=== PATIENT | male | born 1990 | race African-American/Black ===

== ENCOUNTER 2023-10-03 09:27 | Emergency (ER) | payer OTHER, SELFPAY ==
--- NOTE | 2023-10-03 09:38 | ED.ASTHMA ---
HPI - Asthma General Chief Complaint: Asthma Stated Complaint: asthmatic,difficulty breathing Time Seen by Provider: 10/03/23 09:58 Source: patient and RN notes reviewed Mode of arrival: ambulatory Limitations: no limitations History of Present Illness HPI Narrative: 33-year-old male presents with concern for trouble breathing he reports history of asthma. He is from [place] and reports he uses franol. He reports he has never used an albuterol inhaler. He reports he has had sinus congestion, drainage for about 3 weeks. Reports over the last several days he started coughing and having shortness of breath. He denies fever. MD complaint: shortness of breath Related Data Home Medications Medication Instructions Recorded Confirmed No Home Medications 10/03/23 10/03/23 Allergies Allergy/AdvReac Type Severity Reaction Status Date / Time No Known Allergies Allergy Verified 10/03/23 09:49 Review of Systems Review of Systems: CONSTITUTIONAL: Denies malaise, chills, sweats, or fever. EYES: Denies visual changes, redness. Reports my drainage and eye pressure ENT: Reports rhinorrhea, congestion, sinus pain. Denies sore throat. CARDIOVASCULAR: Denies chest pain, palpitations, or edema. RESPIRATORY: Reports cough, dyspnea. GASTROINTESTINAL: Denies abdominal pain, nausea, vomiting, diarrhea SKIN: Denies rash or itching. MUSCULOSKELETAL: Denies myalgia. NEUROLOGIC: Denies headache. All systems reviewed & are unremarkable except as noted in HPI and below PMFSH Comments At time of signature, agree with nursing past medical, surgical, social and family history. There is no relevant family history pertinent to the presenting complaint Exam Narrative: GENERAL: Well-appearing, well-nourished, and in no acute distress. HEAD: Normocephalic EYES: PERRLA, conjunctivae clear, sclera mildly injected without drainage noted ENT: Nares clear, turbinates edematous and erythematous. Mucous membranes moist. TM pearly lind with dull light reflex bilaterally; no tragal tenderness. Oropharynx not erythematous without lesions. Tonsils not enlarged and without exudate, no drooling, no hoarseness, no trismus, uvula midline. NECK: Supple. No lymphadenopathy CHEST: Scattered expiratory wheeze Clear to auscultation, breath sounds diminished in the bases. No rhonchi, rales, or stridor. No respiratory distress, speaks in full sentences. HEART: Regular rate and rhythm. No murmur heard. SKIN: Warm, dry, no rash. NEURO: Alert and oriented x3. PSYCH: Normal mood and affect Course Course Emergency Course: Patient is aware of diagnosis, understands and agrees to treatment plan. Anticipatory guidance given. Patient agrees to follow-up as directed and is aware of reasons to seek care at the emergency department. Portions of this record may have been created with voice recognition software Level of Care: Express Care Visit Consultations Consultation #1: Patient reports improvement symptoms after DuoNeb, lung sounds improved, lung sounds the base clear, no wheeze noted Date: 10/03/23 Time: 10:34 Vital Signs Vital signs: Reviewed. MDM - Asthma MDM Narrative Medical decision making narrative: Differential diagnosis considered: [place] virus, strep pharyngitis, allergic rhinitis, upper respiratory tract infection, sinusitis, rhinosinusitis, nasopharyngitis. viral pharyngitis, otitis media, otitis externa, pneumonia, bronchitis, viral cough syndrome, viral syndrome, and influenza. Exam findings show no acute concerns or changes; patient is non-toxic appearing and is in no distress. Patient is appropriate for outpatient treatment and follow-up. Differential Diagnosis Differential diagnosis: Likely Acute exacerbation, Status asthmaticus, Acute asthmatic bronchitis and Pneumonia Lab Data Attestation: I reviewed the patient's lab results. Critical Care Time Critical Care Time Critical Care Time: No Discharge Plan Discharge Clinical Impression:
[2023-10-03 09:44] VITALS: BP 122/80; PULSE 95; RESP 16; TEMP 36.5; O2SAT 99
[2023-10-03 10:20] VITALS: PULSE 95; RESP 16; O2SAT 99
[2023-10-03] MEDS: IPRATROPIUM 0.5 MG/ALBUTEROL SULFATE 2.5 MG AMPUL.NEB 3 ML INHALATION (10:21)
== END 2023-10-03 10:45 | disposition home or self-care (01) ==
PROVIDERS: Emergency Provider Nurse Practitioner
DX: J45.901 Unspecified asthma with (acute) exacerbation (principal); J01.90 Acute sinusitis, unspecified
CPT/HCPCS: 94640; 99203; G0463